=== PATIENT | female | born 1960 | race African-American/Black ===

== ENCOUNTER 2021-12-28 20:22 | Inpatient (IN) | payer BC ==
[~2021-12-28] VITALS: Ht 167.6 cm; Wt 81.6 kg
[2021-12-28] MEDS ORDERED: PRAV10TA35 MT (20:35)
[2021-12-28] MEDS ORDERED: METF500S7 PO (20:35)
[2021-12-28] MEDS ORDERED: SODIUM CHLORIDE 0.9% 1,000 ML IV ONE (21:15)
[2021-12-28 21:46] LABS: CLARITY URINE CLEAR (CLEAR); COLOR URINE YELLOW (YELLOW); KETONES URINE NEGATIVE (NEGATIVE); LEUKOCYTE ESTERASE URINE NEGATIVE (NEGATIVE); NITRITE URINE NEGATIVE (NEGATIVE); OCCULT BLOOD URINE NEGATIVE (NEGATIVE); PH URINE 6.5 (4.5-8.0); PROTEIN URINE NEGATIVE (NEGATIVE); SPECIFIC GRAVITY URINE 1.004 (1.005-1.030); UROBILINOGEN URINE 0.2 E.U./dL (0.2-1.0)
[2021-12-28 21:51] LABS: BASOPHILS % 0.6 % (0.0-2.0); EOSINOPHILS % 1.1 % (0.0-5.0); HEMATOCRIT. 40.4 % (36.0-48.0); LYMPHOCYTES % 50.2 % (20.0-50.0); MEAN CORPUSCULAR VOLUME 90.1 fL (81.0-99.0); MEAN PLATELET VOLUME 8.2 fl (7.4-10.4); MONOCYTES % 7.6 % (2.0-8.0); NEUTROPHILS % 40.5 % (40.0-76.0); PLATELET 190 x1000/uL (130-400); RED BLOOD CELL COUNT 4.49 mill/uL (4.2-5.4); RED CELL DISTRIBUTION WIDTH 13.7 % (11.6-14.6)
[2021-12-28 22:01] LABS: CHLORIDE 107 mEq/L (98-107)
[2021-12-29] VITALS (8 sets, daily range): BP systolic 126–159; BP diastolic 64–91
[2021-12-29] MEDS ORDERED: ONDANSETRON HCL 4MG/2ML INJ IV PRN (11:00)
[2021-12-29] MEDS: ACETAMINOPHEN 325MG TABLET PO PRN ×2 (14:20→22:45)
[2021-12-29] MEDS: AMLODIPINE 5MG TABLET PO SCH (14:55)
[2021-12-29] MEDS ORDERED: IOHEXOL-350 100 ML BOTTLE ONE (18:01)
[2021-12-29] MEDS ORDERED: ATORVASTATIN CALCIUM 10MG TABLET PO SCH (21:00)
[2021-12-30] VITALS (7 sets, daily range): BP systolic 111–169; BP diastolic 68–79
[2021-12-30 06:57] LABS: BASOPHILS % 0.5 % (0.0-2.0); EOSINOPHILS % 1.5 % (0.0-5.0); HEMATOCRIT. 40.9 % (36.0-48.0); HEMOGLOBIN. 13.5 g/dL (12.0-16.0); LYMPHOCYTES % 45.3 % (20.0-50.0); MEAN CORPUSCULAR HEMOGLOBIN 29.5 pg (28.0-32.0); MEAN CORPUSCULAR VOLUME 89.5 fL (81.0-99.0); MEAN PLATELET VOLUME 8.7 fl (7.4-10.4); NEUTROPHILS % 44.7 % (40.0-76.0); PLATELET 193 x1000/uL (130-400); RED BLOOD CELL COUNT 4.57 mill/uL (4.2-5.4); RED CELL DISTRIBUTION WIDTH 13.8 % (11.6-14.6)
[2021-12-30 07:15] LABS: CHLORIDE 107 mEq/L (98-107)
[2021-12-30 07:25] LABS: HDL CHOLESTEROL 75 mg/dL (40-59); LDL CHOLESTEROL 95 mg/dL (5-100)
[2021-12-30] MEDS: AMLODIPINE 5MG TABLET PO SCH (07:57)
[2021-12-30] MEDS ORDERED: ATORVASTATIN CALCIUM 40MG TABLET PO SCH (21:00)
== END 2021-12-30 16:15 | disposition home or self-care (01) | DRG 74 ==
LOC: ER 20:22 → 5EST 12-29 00:55 → ENRESERV 12-29 05:54
PROVIDERS: ADMIT Internal Medicine; ATTEND Internal Medicine
PROC: 4A00X4Z Measurement of Central Nervous Electrical Activity, External Approach (ICD-10-PCS; principal; 2021-12-30)
DX: G90.8 Other disorders of autonomic nervous system (principal); E78.5 Hyperlipidemia, unspecified; E11.9 Type 2 diabetes mellitus without complications; I11.9 Hypertensive heart disease without heart failure; I16.0 Hypertensive urgency; Z79.84 Long term (current) use of oral hypoglycemic drugs; Z79.899 Other long term (current) drug therapy; Z82.49 Family history of ischemic heart disease and other diseases of the circulatory system
CPT/HCPCS: 36415; 70496; 70498; 70551; 80048; 80053; 80061; 81003; 84484; 85025; 85379; 93005; 93306; 93880; 93970; 95816; 97162; 99285; J7030; Q9967